=== PATIENT | female | born 1995 | race Caucasian/White ===

== ENCOUNTER 2016-12-08 11:48 | Emergency (ER) | payer MEDICAID ==
[~2016-12-08] VITALS: Ht 4 cm; Wt 79.4 kg
[~2016-12-08 11:48] MED LIST: CEPH-460 PO; TERC20CR VAGINAL; ZOFR4TAB3 SL
--- NOTE | 2016-12-08 12:37 | PD ---
HPI Chief Complaint Vaginal bleeding Date Seen: Dec 08, 2016 Time Seen: 12:33 Travel History International Travel<30 Days: No Contact w/Intl Traveler<30Days: No Known Affected Area: No History of Present Illness HPI 21-year-old who is at 37 weeks 6 days comes in today for vaginal spotting. She noticed some discharge and slightly brown and called her OB provider who is [facility] who instructed her to come to the ED. Patient had an exam Tuesday afternoon and her cervix was 1 cm at the time. Patient has good movement and denies contractions or pain. She is planning on attempting a vaginal delivery with this as she had a section with her last Para: 1 : 2 History Past Medical History Medical History: Denies Significant Hx Obstetric History Obstetric History section Past Surgical History Narrative Surgical section Family History Family History: Negative Social History Alcohol Use: No Tobacco Use: No Substance Abuse: No Allergies-Medications (Allergen,Severity, Reaction): Coded Allergies: No Known Allergies (Unverified , 12/08/16) Home Meds Active Scripts Ondansetron Odt (Zofran Odt)4 Mg Tab4 Mg SL Q6HR PRN (Nausea/Vomiting) #10 TAB Ref 0 Prov:Sepideh Enriquez MD 05/11/16 Cephalexin (Keflex)500 Mg [id number] Mg PO Q12H #20 CAP Ref 0 Prov:Sepideh Enriquez MD 05/11/16 Terconazole Vaginal Cream (Terazol 3 Vaginal Cream)0.8 % Cream1 Appl VAGINAL HS #3 GM Ref 0 1 applicatorful intravaginally x 3 nights Prov:Sepideh Enriquez MD 05/11/16 Review of Systems Except as stated in HPI: all other systems reviewed are Neg Physical Exam Narrative GENERAL: Well-nourished, well-developed patient. SKIN: Warm and dry. HEAD: Normocephalic and atraumatic. EYES: No scleral icterus. No injection or drainage. ENT: No nasal drainage noted. Mucous membranes pink. Airway patent. NECK: Supple, trachea midline. No JVD. CARDIOVASCULAR: Regular rate and rhythm without murmurs, gallops, or rubs. RESPIRATORY: Breath sounds equal bilaterally. No accessory muscle use. BREASTS: Bilateral exam showed no masses , no retractions, no nipple discharge. ABDOMEN/GI: Abdomen soft, non-tender, bowel sounds present, no rebound, no guarding Gravid to [-37] weeks size Fundal Height: [-] GENITOURINARY: External Genitalia: intact and normal in appearance BUS glands: [-Normal] Cervix: [Posterior-] Dilatation: [1-] Effacement: [50-] Station: [-3-] Presentation: [-Vertex] Membranes: [intact ] Uterine Contractions: [Absent-] FHT's: Category: [1-] Baseline: 150 [-] Reactive: Moderate [-] Variability: [-Moderate] Decels: [-Absent] EXTREMITIES: No cyanosis or edema. BACK: Nontender without obvious deformity. No CVA tenderness. NEUROLOGICAL: Awake and alert. Motor and sensory grossly within normal limits. Five out of 5 muscle strength in all muscle groups. Normal speech. MDM Medical Record Reviewed: Yes Plan 21-year-old who is at 37 weeks 6 days patient with a slight bit of vaginal spotting this afternoon, had examination 2 days ago and cervix is unchanged at this time. No signs of labor Reassuring heart rate tracing, follow with OB provider scheduled Diagnosis Diagnosis: Primary Impression: Vaginal bleeding during , antepartum Additional Impressions: 37 weeks gestation of Previous section Disposition: 01 DISCHARGE HOME Melly Mcneil MD Dec 08, 2016 12:37
== END 2016-12-08 13:01 | disposition home or self-care (01) ==
LOC: HOBED 11:48
DX: O26.853 Spotting complicating pregnancy, third trimester (principal); O34.219 Maternal care for unspecified type scar from previous cesarean delivery; Z3A.37 37 weeks gestation of pregnancy
CPT/HCPCS: 99281

== ENCOUNTER 2016-12-27 11:17 | Inpatient (IN) | payer MEDICAID ==
[2016-12-27] VITALS (97 sets, daily range): BP systolic 98–137; BP diastolic 28–92; PULSE 64–176; RESP 16–20; TEMP 97.5–98.7
[~2016-12-27] VITALS: Ht 162.6 cm; Wt 79.4 kg
[2016-12-27] MEDS ORDERED: LACTATED RINGER'S 1000 ML INJ 1,000 ML IV PRN (11:41)
[2016-12-27] MEDS ORDERED: ONDANSETRON HCL 4 MG/2 ML VIAL IV PRN (11:45)
[2016-12-27] MEDS ORDERED: MINERAL OIL 10 ML VIAL TOPICAL PRN (11:45)
[2016-12-27] MEDS ORDERED: LIDOCAINE HCL 1% 50 ML VIAL I-DERMAL PRN (11:45)
[2016-12-27] MEDS ORDERED: OXYTOCIN 30 UNITS-500ML PREMIX 500 ML IV ONE (11:45)
[2016-12-27] MEDS ORDERED: SODIUM CHLORID 0.9% 500 ML INJ 500 ML IV PRN (11:45)
[2016-12-27] MEDS ORDERED: LIDOCAINE HCL 1% 50 ML VIAL INFIL PRN (11:45)
[2016-12-27] MEDS ORDERED: CITRIC ACID-SODIUM CITRATE LIQ 30 ML UDC PO SCH (11:45)
[2016-12-27] MEDS ORDERED: OXYTOCIN 30 UNITS-500ML PREMIX 500 ML IV SCH (11:45)
--- NOTE | 2016-12-27 11:47 | HHI.HP ---
HPI Chief Complaint TOLAC Date Seen: Dec 27, 2016 Travel History International Travel<30 Days: No Contact w/Intl Traveler<30Days: No Known Affected Area: No History of Present Illness HPI 21 yo mwf at 40+ weeks EGA here for TOLAC in excellent health no other risk factors prior section for FTP but not clear if she was given adequate labor attempt greatly desires TOLAC as plans on multiple children no PTL, GDM, HTN Para: 1 History Past Medical History Medical History: Denies Significant Hx Past Surgical History Surgical History: No Previous Surgery Family History Family History: Negative Social History Alcohol Use: No Tobacco Use: No Substance Abuse: No Allergies-Medications (Allergen,Severity, Reaction): Coded Allergies: No Known Allergies (Unverified , 12/08/16) Home Meds Active Scripts Ondansetron Odt (Zofran Odt)4 Mg Tab4 Mg SL Q6HR PRN (Nausea/Vomiting) #10 TAB Ref 0 Prov:Sepideh Enriquez MD 05/11/16 Cephalexin (Keflex)500 Mg [id number] Mg PO Q12H #20 CAP Ref 0 Prov:Sepideh Enriquez MD 05/11/16 Terconazole Vaginal Cream (Terazol 3 Vaginal Cream)0.8 % Cream1 Appl VAGINAL HS #3 GM Ref 0 1 applicatorful intravaginally x 3 nights Prov:Sepideh Enriquez MD 05/11/16 Review of Systems General / Constitutional: No: Fever, Weight Gain, Chills, Other Physical Exam Narrative GENERAL: Well-nourished, well-developed patient. SKIN: Warm and dry. HEAD: Normocephalic and atraumatic. EYES: No scleral icterus. No injection or drainage. ENT: No nasal drainage noted. Mucous membranes pink. Airway patent. NECK: Supple, trachea midline. No JVD. CARDIOVASCULAR: Regular rate and rhythm without murmurs, gallops, or rubs. RESPIRATORY: Breath sounds equal bilaterally. No accessory muscle use. BREASTS: Bilateral exam showed no masses , no retractions, no nipple discharge. ABDOMEN/GI: Abdomen soft, non-tender, bowel sounds present, no rebound, no guarding term uterus 3/75% -1 deviated to patient's left AROM scant fluid EXTREMITIES: No cyanosis or edema. BACK: Nontender without obvious deformity. No CVA tenderness. NEUROLOGICAL: Awake and alert. Motor and sensory grossly within normal limits. Five out of 5 muscle strength in all muscle groups. Normal speech. Data Data Orders Admit To Inpatient (12/27/16 ) Code Status (12/27/16 11:41) Vital Signs (Adult) .Per protocol (12/27/16 11:41) Activity Oob Ad Ange (12/27/16 11:41) Heart (12/27/16 11:41) Amnioinfusion (12/27/16 11:41) Urinary Catheter Management .ONCE (12/27/16 11:41) Lactated Ringer's 1000 Ml Inj (Lr 1000 M (12/27/16 11:41) Lactated Ringer's 1000 Ml Inj (Lr 1000 M (12/27/16 11:41) Sodium Chlorid 0.9% 500 Ml Inj (Ns 500 M (12/27/16 11:45) Sodium Chlor 0.9% 1000 Ml Inj (Ns 1000 M (12/27/16 12:01) Lidocaine 1% Inj (50 Ml) (Xylocaine 1% I (12/27/16 11:45) Citric Acid-Sodium Citrate Liq (Bicitra (12/27/16 11:45) Ondansetron Inj (Zofran Inj) (12/27/16 11:45) Fentanyl Inj (Fentanyl Inj) (12/27/16 11:45) Fentanyl Inj (Fentanyl Inj) (12/27/16 11:45) Complete Blood Count With Diff (12/27/16 11:41) Hold Clot (12/27/16 11:41) Abo/Rh Blood Type (12/27/16 11:41) Urinalysis - C+S If Indicated (12/27/16 11:41) Resp Oxygen Non Rebreathe Mask (12/27/16 ) ^ Epidural / Intrathecal Infus (12/27/16 11:41) Oxytocin 30 Units-500ml Premix (Pitocin (12/27/16 11:45) Lidocaine 1% Inj (50 Ml) (Xylocaine 1% I (12/27/16 11:45) Light Mineral Oil (Muri-Lube Oil) (12/27/16 11:45) ^ Non Stress Test (12/27/16 11:41) Response To Medication .Post New Med Administration, Reaction (12/27/16 11:41) ^ Discontinue Medication (12/27/16 11:41) Oxytocin Drip (30) (12/27/16 11:45) Inpatient Certification (12/27/16 ) Specimen To Be Collected PRN (12/27/16 11:41) Diet Regular Basic (12/27/16 Lunch) Assessment/Plan Assessment and Plan Term after section for FTP--did get to 7 cm 2 years ago not an ideal TOLAC candidate but desires large family and we will do our best\ EFW 7 1/2 pounds pelvis clinically adequate see orders Ivette Hernandez MD Dec 27, 2016 11:47 Inpatient Certification (12/27/16 ) Specimen To Be Collected PRN (12/27/16 11:41) Diet Regular Basic (12/27/16 Lunch) Ivette Hernandez MD Dec 27, 2016 11:47
[2016-12-27] MEDS ORDERED: SODIUM CHLOR 0.9% 1000 ML INJ 1,000 ML IV PRN (12:01)
[2016-12-27 12:16] LABS: AUTOMATED NEUTROPHIL # 6.4 TH/MM3 (1.8-7.7); BASOPHIL # 0.1 TH/MM3 (0-0.2); BASOPHIL % 0.7 % (0.0-2.0); EOSINOPHIL # 0.1 TH/MM3 (0-0.4); EOSINOPHIL % 0.9 % (0.0-4.0); HEMATOCRIT 38.5 % (35.0-46.0); HEMO FLAGS DIFF FINAL; LYMPH % 17.1 % (9.0-44.0); LYMPHOCYTE # 1.4 TH/MM3 (1.0-4.8); MEAN CELL VOLUME 81.1 FL (80.0-100.0); MEAN CORPUSCULAR HEMOGLOBIN 27.1 PG (27.0-34.0); MEAN CORPUSCULAR HGB CONC 33.4 % (32.0-36.0); MONO % 4.3 % (0.0-8.0); PLATELET COUNT 133 TH/MM3 (150-450); RED BLOOD COUNT 4.74 MIL/MM3 (4.00-5.30); RED CELL DISTRIBUTION WIDTH 15.9 % (11.6-17.2); WHITE BLOOD COUNT 8.3 TH/MM3 (4.0-11.0)
[2016-12-27 12:36] LABS: BACTERIA, URINE RARE /hpf; BLOOD, URINE NEG (NEG); COMMENT (UR) CULT NOT INDICATED; CULTURE IF INDICATED CULT NOT INDICATED; GLUCOSE,URINE NEG (NEG); KETONE, URINE NEG (NEG); MUCUS URINE FEW /lpf (OCC); NITRITE,URINE NEG (NEG); PH, URINE 6.5 (5.0-8.5); SQUAMOUS EPITHELIAL CELL URINE 5 /hpf (0-5); URINE COLOR YELLOW (YELLW/STRAW)
[2016-12-27] MEDS ORDERED: PRENTAB60 (12:36)
[2016-12-27] MEDS: LACTATED RINGER'S 1000 ML INJ 1,000 ML IV SCH ×3 (12:50→22:11)
[2016-12-27] MEDS ORDERED: fentaNYL 2MCG-BUPIV 0.125% INJ 100 ML ONE (15:13)
[2016-12-27] MEDS ORDERED: ePHEDrine/NS 25 MG/5 ML SYR IV PRN (16:00)
[2016-12-27] MEDS ORDERED: NO SYSTEM NARCOTICS PRN (16:00)
[2016-12-27] MEDS ORDERED: DO NOT ADMINISTER ANTICOAGULANTS PRN (16:00)
[2016-12-27] MEDS: fentaNYL 2MCG-BUPIV 0.125% 100 ML EPIDURAL SCH (17:17)
[2016-12-27] MEDS ORDERED: BUPIVACAINE HCL PF 0.25% 10 ML VIAL ONE (21:30)
[2016-12-27] MEDS ORDERED: LIDOCAINE HCL 1% PF 30 ML VIAL ONE (21:30)
[2016-12-28] VITALS (61 sets, daily range): BP systolic 94–122; BP diastolic 37–80; PULSE 101–145; RESP 18–20; TEMP 97.6–99.8
[2016-12-28] MEDS: LACTATED RINGER'S 1000 ML INJ 1,000 ML IV SCH (00:40)
[2016-12-28] MEDS: fentaNYL 2MCG-BUPIV 0.125% 100 ML EPIDURAL SCH (02:00)
[2016-12-28] MEDS ORDERED: ACETAMINOPHEN 325 MG TAB PO ONE ×2 (03:00→10:15)
--- NOTE | 2016-12-28 08:07 | PD.OB.DELI ---
Anesthesia: Epidural Episiotomy: None Vaginal Delivery: Normal, Vacuum, Presentation: Occiput anterior Nuchal Cord: Other (true knot mid cord) Delayed cord clamping (45 sec): Yes Infant: Male One Minute : 9 Five Minute : 9 Weight: 9 Placenta: Spontaneous delivery Laceration: Vaginal laceration, 2 deg Repair: Chromic interrupted, Vicryl interrupted (EBL average Cervix intact Uterus not explored due to lack of symptoms and minimal blood loss.) Ivette Hernandez MD Dec 28, 2016 08:07
[2016-12-28] MEDS ORDERED: ONDANSETRON ODT 4 MG TAB PO PRN (08:15)
[2016-12-28] MEDS ORDERED: SODIUM CHLORIDE 0.9% FLUSH 10 ML FLUSH IV FLUSH PRN (08:15)
[2016-12-28] MEDS ORDERED: ALUMINUM/MAGNESIUM/SIMETH 30 ML CUP PO PRN (08:15)
[2016-12-28] MEDS ORDERED: ZOLPIDEM TARTRATE 5 MG TAB PO PRN (08:15)
[2016-12-28] MEDS: DOCUSATE SODIUM 50 MG/SENNA 8.6 MG TAB PO PRN ×2 (08:22→14:19)
[2016-12-28] MEDS: SODIUM CHLORIDE 0.9% FLUSH 10 ML FLUSH IV FLUSH SCH (08:23)
[2016-12-28] MEDS: IBUPROFEN 600 MG TAB PO PRN ×4 (08:23→23:41)
[2016-12-28] MEDS: WITCH HAZEL 50%/GLYCERIN 12.5% 40 PAD JAR TOPICAL PRN ×2 (10:17→23:03)
[2016-12-28] MEDS: BENZOCAINE 20% TOPICAL SPRAY 60 ML CAN TOPICAL PRN ×2 (10:17→23:03)
[2016-12-28] MEDS: ACETAMINOPHEN 325 MG TAB PO PRN ×2 (14:15→20:43)
[2016-12-28] MEDS ORDERED: DIPHTH/TETANUS/ACEL PERTUSSIS (BOOSTER) 0.5 ML VIAL/PFS IM ONE (16:00)
[2016-12-28] MEDS ORDERED: MEASLES, MUMPS, RUBELLA VACCINE 0.5 ML VIAL SQ ONE (16:00)
[2016-12-29] MEDS ORDERED: BISACODYL 10 MG SUPP RECTAL ONE
[2016-12-29] MEDS: ACETAMINOPHEN 325 MG TAB PO PRN ×4 (02:19→18:14)
[2016-12-29] MEDS: DOCUSATE SODIUM 50 MG/SENNA 8.6 MG TAB PO PRN (02:19)
[2016-12-29] MEDS: LACTATED RINGER'S 1000 ML INJ 1,000 ML IV SCH (03:41)
[2016-12-29] MEDS: IBUPROFEN 600 MG TAB PO PRN ×3 (06:34→20:41)
[2016-12-29 08:10] VITALS: BP 102/62; PULSE 89; RESP 16; TEMP 97.9
--- NOTE | 2016-12-29 08:14 | HHI.DCPOC ---
Discharge Care Plan Diagnosis: (1) , delivered, current hospitalization Your Health Problems Are: Vaginal delivery Report Symptoms to Your Doctor -Temperature above 100.5 degrees -Redness, of incision or excessive or foul smelling drainage -Unusual pain or calf pain -Increased vaginal bleeding -Painful or difficulty urinating -Feelings of extreme sadness or anxiety after 2 weeks Goals to Promote Your Health * To prevent worsening of your condition and complications * To maintain your health at the optimal level Directions to Meet Your Goals Take your medications as prescribed Follow your dietary instruction Follow activity as directed Ensure plenty of rest for recovery Drink fluids for hydration Keep your appointments as scheduled Take your immunizations and boosters as scheduled If your symptoms worsen call your PCP, if no PCP go to Urgent Care Center or Emergency Room Smoking is Dangerous to Your Health. Avoid second hand smoke Call the 24-hour crisis hotline for domestic abuse at Eda Hernandez MD Dec 29, 2016 08:14
--- NOTE | 2016-12-29 08:33 | HHI.OB ---
Subjective Post Day: 1 Remarks s/p successful Objective Vitals/I&O Vital Signs Date Time Temp Pulse Resp B/P Pulse Ox O2 Delivery O2 Flow Rate FiO2 12/29/16 03:19 18 12/29/16 00:41 16 12/28/16 20:00 101 18 115/72 12/28/16 20:00 97.8 12/28/16 14:05 101 12/28/16 14:05 98.2 12/28/16 10:20 98.7 12/28/16 10:20 122 20 100/64 12/28/16 09:05 20 12/28/16 09:00 114 109/53 12/28/16 08:50 20 12/28/16 08:45 122 106/53 12/28/16 08:35 98.4 Objective Remarks GENERAL: Well-nourished, well-developed patient. CARDIOVASCULAR: Regular rate and rhythm without murmurs, gallops, or rubs. RESPIRATORY: Breath sounds equal bilaterally. No accessory muscle use. ABDOMEN/GI: Abdomen soft, non-tender. Fundus: Firm, non-tender at umbilicus. GENITOURINARY: Light to moderate bleeding. Sutures intact. Swelling lessening. EXTREMITIES: No cyanosis or edema, non-tender, without signs of DVT. Medications and IVs Current Medications Medications (Trade) Dose Ordered Sig/Ellyn Route Start Time Stop Time Status Last Admin Lactated Ringer's 1,000 ml @ 125 mls/hr Q8H IV 12/27/16 11:41 12/28/16 00:40 Lactated Ringer's 1,000 ml @ 3,000 mls/hr Q20M PRN IV 12/27/16 11:41 12/27/16 15:17 (NS 1000 ml Inj) 1,000 ml @ 100 mls/hr Q10H PRN IV 12/27/16 12:01 (fentaNYL INJ) 50 mcg Q1H PRN IV PUSH 12/27/16 11:45 (fentaNYL INJ) 100 mcg Q1H PRN IV PUSH 12/27/16 11:45 Mineral Oil 10 ml 10 ml UNSCH PRN TOPICAL 12/27/16 11:45 Oxytocin 500 ml @ 0 mls/hr TITRATE IV 12/27/16 11:45 12/27/16 12:39 (fentaNYL 2MCG-BUPIV 0.125% INJ) 100 ml @ 0 mls/hr TITRATE EPIDURAL 12/27/16 16:00 12/28/16 02:00 (NS Flush) 2 ml BID IV FLUSH 12/28/16 09:00 (NS Flush) 2 ml UNSCH PRN IV FLUSH 12/28/16 08:15 (Tylenol) 650 mg Q4H PRN PO 12/28/16 08:15 12/29/16 06:34 (Motrin) 600 mg Q6H PRN PO 12/28/16 08:15 12/29/16 06:34 (Americaine 20% Top Spr) 1 spray Q4H PRN TOPICAL 12/28/16 08:15 12/28/16 23:03 (Tucks Pads) 1 applic QID PRN TOPICAL 12/28/16 08:15 12/28/16 23:03 (Margot-Colace) 2 tab Q12H PRN PO 12/28/16 08:15 12/29/16 02:19 (Ambien) 5 mg HS PRN PO 12/28/16 08:15 (Mag-Al Plus Susp Liq) 15 ml Q8H PRN PO 12/28/16 08:15 (Zofran Odt) 4 mg Q6H PRN PO 12/28/16 08:15 Assessment/Plan Assessment and Plan PPD#1, successful doing well routine PP care reviewed perineal/episiotomy care routine d/c planning Discharge Planning routine Eda Hernandez MD Dec 29, 2016 08:33
[2016-12-29] MEDS ORDERED: IBUP-232 PO (08:34)
[2016-12-29] MEDS ORDERED: SENN1TAB PO (08:34)
--- NOTE | 2016-12-29 08:39 | HHI.OB ---
Subjective Post Day: 1 Remarks Doing well post infant nursing well mild pain in perineum still swollen describes lochia not excessive Objective Vitals/I&O Vital Signs Date Time Temp Pulse Resp B/P Pulse Ox O2 Delivery O2 Flow Rate FiO2 12/29/16 03:19 18 12/29/16 00:41 16 12/28/16 20:00 101 18 115/72 12/28/16 20:00 97.8 12/28/16 14:05 101 12/28/16 14:05 98.2 12/28/16 10:20 98.7 12/28/16 10:20 122 20 100/64 12/28/16 09:05 20 12/28/16 09:00 114 109/53 12/28/16 08:50 20 12/28/16 08:45 122 106/53 Objective Remarks GENERAL: Well-nourished, well-developed patient. CARDIOVASCULAR: Regular rate and rhythm without murmurs, gallops, or rubs. RESPIRATORY: Breath sounds equal bilaterally. No accessory muscle use. ABDOMEN/GI: Abdomen soft, non-tender. Fundus: Firm, non-tender at umbilicus. GENITOURINARY: Light to moderate bleeding. Sutures intact. Swelling lessening. EXTREMITIES: No cyanosis or edema, non-tender, without signs of DVT. Medications and IVs Current Medications Medications (Trade) Dose Ordered Sig/Ellyn Route Start Time Stop Time Status Last Admin Lactated Ringer's 1,000 ml @ 125 mls/hr Q8H IV 12/27/16 11:41 12/28/16 00:40 Lactated Ringer's 1,000 ml @ 3,000 mls/hr Q20M PRN IV 12/27/16 11:41 12/27/16 15:17 (NS 1000 ml Inj) 1,000 ml @ 100 mls/hr Q10H PRN IV 12/27/16 12:01 (fentaNYL INJ) 50 mcg Q1H PRN IV PUSH 12/27/16 11:45 (fentaNYL INJ) 100 mcg Q1H PRN IV PUSH 12/27/16 11:45 Mineral Oil 10 ml 10 ml UNSCH PRN TOPICAL 12/27/16 11:45 Oxytocin 500 ml @ 0 mls/hr TITRATE IV 12/27/16 11:45 12/27/16 12:39 (fentaNYL 2MCG-BUPIV 0.125% INJ) 100 ml @ 0 mls/hr TITRATE EPIDURAL 12/27/16 16:00 12/28/16 02:00 (NS Flush) 2 ml BID IV FLUSH 12/28/16 09:00 (NS Flush) 2 ml UNSCH PRN IV FLUSH 12/28/16 08:15 (Tylenol) 650 mg Q4H PRN PO 12/28/16 08:15 12/29/16 06:34 (Motrin) 600 mg Q6H PRN PO 12/28/16 08:15 12/29/16 06:34 (Americaine 20% Top Spr) 1 spray Q4H PRN TOPICAL 12/28/16 08:15 12/28/16 23:03 (Tucks Pads) 1 applic QID PRN TOPICAL 12/28/16 08:15 12/28/16 23:03 (Margot-Colace) 2 tab Q12H PRN PO 12/28/16 08:15 12/29/16 02:19 (Ambien) 5 mg HS PRN PO 12/28/16 08:15 (Mag-Al Plus Susp Liq) 15 ml Q8H PRN PO 12/28/16 08:15 (Zofran Odt) 4 mg Q6H PRN PO 12/28/16 08:15 Assessment/Plan Assessment and Plan PPD#1, successful doing well routine PP care reviewed perineal/episiotomy care routine d/c planning Discharge Planning routine Ivette Hernandez MD Dec 29, 2016 08:39
[2016-12-29 19:38] VITALS: BP 125/70; PULSE 86; RESP 17; TEMP 97.8
[2016-12-29] MEDS: WITCH HAZEL 50%/GLYCERIN 12.5% 40 PAD JAR TOPICAL PRN (20:37)
[2016-12-30] MEDS: IBUPROFEN 600 MG TAB PO PRN (07:04)
[2016-12-30] MEDS: ACETAMINOPHEN 325 MG TAB PO PRN (07:04)
[2016-12-30 08:00] VITALS: BP 106/64; PULSE 88; RESP 16; TEMP 97.5
--- NOTE | 2016-12-30 08:11 | HHI.OB ---
Subjective Post Day: 2 Remarks no complaints, will have circ with [facility] Objective Vitals/I&O Vital Signs Date Time Temp Pulse Resp B/P Pulse Ox O2 Delivery O2 Flow Rate FiO2 12/29/16 19:38 97.8 12/29/16 19:38 86 17 125/70 Objective Remarks GENERAL: Well-nourished, well-developed patient. CARDIOVASCULAR: Regular rate and rhythm without murmurs, gallops, or rubs. RESPIRATORY: Breath sounds equal bilaterally. No accessory muscle use. ABDOMEN/GI: Abdomen soft, non-tender. Fundus: Firm, non-tender at umbilicus. GENITOURINARY: Light to moderate bleeding. Sutures intact. Swelling lessening. EXTREMITIES: No cyanosis or edema, non-tender, without signs of DVT. Medications and IVs Current Medications Medications (Trade) Dose Ordered Sig/Ellyn Route Start Time Stop Time Status Last Admin Lactated Ringer's 1,000 ml @ 125 mls/hr Q8H IV 12/27/16 11:41 12/28/16 00:40 Lactated Ringer's 1,000 ml @ 3,000 mls/hr Q20M PRN IV 12/27/16 11:41 12/27/16 15:17 (NS 1000 ml Inj) 1,000 ml @ 100 mls/hr Q10H PRN IV 12/27/16 12:01 (fentaNYL INJ) 50 mcg Q1H PRN IV PUSH 12/27/16 11:45 (fentaNYL INJ) 100 mcg Q1H PRN IV PUSH 12/27/16 11:45 Mineral Oil 10 ml 10 ml UNSCH PRN TOPICAL 12/27/16 11:45 Oxytocin 500 ml @ 0 mls/hr TITRATE IV 12/27/16 11:45 12/27/16 12:39 (fentaNYL 2MCG-BUPIV 0.125% INJ) 100 ml @ 0 mls/hr TITRATE EPIDURAL 12/27/16 16:00 12/28/16 02:00 (NS Flush) 2 ml BID IV FLUSH 12/28/16 09:00 (NS Flush) 2 ml UNSCH PRN IV FLUSH 12/28/16 08:15 (Tylenol) 650 mg Q4H PRN PO 12/28/16 08:15 12/30/16 07:04 (Motrin) 600 mg Q6H PRN PO 12/28/16 08:15 12/30/16 07:04 (Americaine 20% Top Spr) 1 spray Q4H PRN TOPICAL 12/28/16 08:15 12/28/16 23:03 (Tucks Pads) 1 applic QID PRN TOPICAL 12/28/16 08:15 12/29/16 20:37 (Margot-Colace) 2 tab Q12H PRN PO 12/28/16 08:15 12/29/16 02:19 (Ambien) 5 mg HS PRN PO 12/28/16 08:15 (Mag-Al Plus Susp Liq) 15 ml Q8H PRN PO 12/28/16 08:15 12/30/16 03:25 (Zofran Odt) 4 mg Q6H PRN PO 12/28/16 08:15 Assessment/Plan Assessment and Plan PPD#2, successful doing well routine PP care reviewed perineal/episiotomy care routine d/c planning Discharge Planning routine Attending Attestation pt seen by Marleni Palacios MD Dec 30, 2016 08:11
[2016-12-30] MEDS: SODIUM CHLORIDE 0.9% FLUSH 10 ML FLUSH IV FLUSH SCH (09:00)
[2016-12-30] MEDS: LACTATED RINGER'S 1000 ML INJ 1,000 ML IV SCH (09:17)
[2016-12-30 11:10] LABS: BACTERIA, URINE RARE /hpf; BLOOD, URINE LARGE (NEG); COMMENT (UR) CULTURE INDICATED; CULTURE IF INDICATED CULTURE INDICATED; GLUCOSE,URINE NEG (NEG); KETONE, URINE NEG (NEG); MUCUS URINE FEW /lpf (OCC); NITRITE,URINE NEG (NEG); PH, URINE 5.5 (5.0-8.5); SQUAMOUS EPITHELIAL CELL URINE 1 /hpf (0-5); URINE COLOR YELLOW (YELLW/STRAW)
== END 2016-12-30 11:27 | disposition home or self-care (01) | DRG 775 ==
LOC: H2EB 11:17 → H1EA 12-28 09:48
PROVIDERS: ADMIT Obstetrics & Gynecology; ATTEND Obstetrics & Gynecology
PROC: 10D07Z6 Extraction of Products of Conception, Vacuum, Via Natural or Artificial Opening (ICD-10-PCS; principal; 2016-12-28)
PROC: 0KQM0ZZ Repair Perineum Muscle, Open Approach (ICD-10-PCS; 2016-12-28)
DX: O34.211 Maternal care for low transverse scar from previous cesarean delivery (principal); O69.2XX0 Labor and delivery complicated by other cord entanglement, with compression, not applicable or unspecified; Z3A.40 40 weeks gestation of pregnancy; Z37.0 Single live birth; O70.1 Second degree perineal laceration during delivery
CPT/HCPCS: 59025; 81001; 85025; 86900; 86901; 87086; 90715; J2590; J7120

== ENCOUNTER 2018-03-16 19:51 | Inpatient (IN) ==
[2018-03-16] MEDS ORDERED: Sodium Chlor 0.9% Inj 500 ML IV.SIG PRN (20:43)
[2018-03-16] MEDS ORDERED: Naloxone Inj 0.4 MG/ML Vial IV.PUSH PRN (20:43)
[2018-03-16] MEDS ORDERED: Sod Chloride 0.9% Inj 1,000 ML IV.CONT PRN (20:43)
[2018-03-16] MEDS ORDERED: fentaNYL Citrate Inj 100 MCG/2 ML Ampul IV.PUSH PRN ×2 (20:43)
[2018-03-16] MEDS ORDERED: Oxytocin 30 Units/500ml Premix 30 UNITS/500 ML BAG IV.SIG ONE (20:43)
[2018-03-16] MEDS ORDERED: Lidocaine 1% Inj 50 ML Vial INFILTRATN PRN (20:43)
[2018-03-16] MEDS ORDERED: Citric Acid/Sodium Citrate Liq 30 ML UDC PO SCH (20:45)
[2018-03-16 21:09] LABS: Baso % (Auto) 0.3 % (0.0-2.0); Eos # (Auto) 0.1 th/mm3 (0.0-0.4); Eos % (Auto) 0.9 % (0.0-4.0); Hematocrit 36.1 % (35.0-46.0); Hemoglobin 12.3 gm/dL (11.6-15.3); Lymph # (Auto) 1.8 th/mm3 (1.0-4.8); Lymph % (Auto) 19.8 % (9.0-44.0); Mean Corpuscular HGB Conc 33.9 % (32.0-36.0); Mean Corpuscular Hemoglobin 28.5 pg (27.0-34.0); Mean Platelet Volume 8.9 fL (7.0-11.0); Mono # (Auto) 0.7 th/mm3 (0.0-0.9); Mono % (Auto) 8.1 % (0.0-8.0); Neut # (Auto) 6.4 th/mm3 (1.8-7.7); Neut % (Auto) 70.9 % (16.0-70.0); Platelet Count 139 th/mm3 (150-450); Red Cell Distribution Width 15.5 % (11.6-17.2)
[2018-03-16 21:23] LABS: Bacteria,Urine Occasional /hpf; Bilirubin,Urine Negative (Negative); Calcium Oxalate Crystals,Urine Occasional /hpf; Clarity,Urine Hazy (Clear); Color,Urine Yellow (Yellw/Straw); Glucose,Urine (UA) Negative (Negative); Leukocyte Esterase,Urine Trace (Negative); Mucus,Urine Few /lpf (Occasional); Nitrite,Urine Negative (Negative); Squamous Epithelial Cell,Urine 8 /hpf (0-5)
[2018-03-16 21:24] LABS: Amphetamine Urine With Conf Neg (Neg); Benzodiazepine Urine With Conf Neg (Neg)
[2018-03-17] MEDS ORDERED: Oxytocin 30 Units/500ml Premix 30 UNITS/500 ML BAG IV.SIG PRN (00:55)
[2018-03-17] MEDS ORDERED: fentaNYL 2MCG-Bupiv 0.125% Epi 150 ML EPIDURAL ONE (00:59)
[2018-03-17] MEDS ORDERED: Lidocaine PF 1% Inj 5 ML Vial ONE (01:11)
[2018-03-17] MEDS ORDERED: Lidocaaine 1.5%/Epinephrine 1:200,000 PF Inj 5 ML Amp ONE (01:11)
[2018-03-17] MEDS ORDERED: fentaNYL 2MCG-Bupiv 0.125% Epi 150 ML EPIDURAL PRN (02:07)
[2018-03-17] MEDS ORDERED: fentaNYL Citrate Inj 100 MCG/2 ML Ampul EPIDURAL ONE (02:07)
[2018-03-17] MEDS ORDERED: Oxytocin 30 Units/500ml Premix 30 UNITS/500 ML BAG IV.CONT PRN (05:30)
[2018-03-17] MEDS ORDERED: Naloxone Inj 0.4 MG/ML Vial IV.PUSH PRN (05:30)
[2018-03-17] MEDS ORDERED: Witch Hazel 50%/Glyderin 12.5% 40 Pad Jar RECTAL PRN (05:30)
[2018-03-17] MEDS ORDERED: Benzocaine 20% Top Spray 60 ML Can TOPICAL PRN (05:30)
[2018-03-17] MEDS ORDERED: Zolpidem Tartrate 5 MG Tablet PO PRN (05:30)
[2018-03-17] MEDS ORDERED: Bisacodyl 10 MG Supp RECTAL PRN (05:30)
[2018-03-17] MEDS: Senna/Docusate Sodium 8.6/50 MG Tablet PO SCH ×2 (13:58→21:22)
[2018-03-17] MEDS: Acetaminophen 325 MG Tablet PO PRN ×2 (15:52→21:22)
[2018-03-17] MEDS ORDERED: Measles/Mumps/Rubella Vaccine Inj 0.5 ML Vial SQ ONE (16:00)
[2018-03-17] MEDS ORDERED: Diphtheria/Tetanus/Pertussis Vaccine Inj 0.5 ML Syringe IM ONE (16:00)
[2018-03-18] MEDS: Senna/Docusate Sodium 8.6/50 MG Tablet PO SCH (08:24)
[2018-03-18] MEDS: Acetaminophen 325 MG Tablet PO PRN (15:43)
== END 2018-03-18 21:31 | disposition home or self-care (01) ==
LOC: H2E 19:51 → H1EA 03-17 07:47
PROVIDERS: ADMIT Obstetrics & Gynecology; ATTEND Obstetrics & Gynecology